=== PATIENT | female | born 1970 | race Caucasian/White ===

== ENCOUNTER 2019-09-19 14:51 | Inpatient (IN) | payer OTHER ==
[2019-09-19 18:16] VITALS: BMI 23.6
--- NOTE | 2019-09-19 21:22 | HP ---
COWS - Scale Resting Pulse: 0= [place] 80 or Below Sweatin=Flushed/Facial Moisture Restless Observation: 1= Difficult to Sit Still Pupil Size: 1= Pupils >than Normal (Pupils = 3 mm) Bone or Joint Aches: 0= None Runny Nose/ Eye Tearin= Nasal Congestion GI Upset > 30mins: 0= None Tremor Observation: 2= Slight Tremor Visible Yawning Observation: 0= None Anxiety or Irritability: 2=Irritable/Anxious Goose Flesh Skin: 0=Smooth Skin COWS Score: 9 CIWA Score Nausea/Vomitin-No Nausea/No Vomiting Muscle Tremors: 3 Anxiety: 3 Agitation: 1-Slight > Activity Paroxysmal Sweats: 3 (Increased facial moisture) Orientation: 0-Oriented Tacttile Disturbances: 1-Very Mild Itch/Numbness Auditory Disturbances: 0-None Visual Disturbances: 0-None Headache: 3-Moderate CIWA-Ar Total Score: 14 - Admission Criteria OAS Guidelines: Admission for Medically Managed Detox: Requires at least one of the followin. CIWA greater than 12 2. Seizures within the past 24 hours 3. Delirium tremens within the past 24 hours 4. Hallucinations within the past 24 hours 5. Acute intervention needed for co occurring medical disorder 6. Acute intervention needed for co occurring psychiatric disorder 7. Severe withdrawal that cannot be handled at a lower level of care (continued vomiting, continued diarrhea, abnormal vital signs) requiring intravenous medication and/or fluids 8. Patient presents the following: CIWA greater than 12 Admission Criteria Met: Admission criteria met Admitting History and Physical - Smoking History Smoking history: Never smoked Admission ROS [facility] Chief Complaint: I need to stop all these drugs. I want to be drug free. Allergies/Adverse Reactions: Allergies Allergy/AdvReac Type Severity Reaction Status Date / Time No Known Allergies Allergy Verified 09/19/19 18:00 History of Present Illness: 49 yo old states wants to detox from valium, oxycodone, heroin, and exhibits withdrawal symptoms. Denies seizures, blackouts, or overdoses. Oxycodone x 8 yrs ago. Uses 3-20 pills/day. Last used about 11 a.m. Denies suboxone use. Valium use began at age 19. Prescribed - takes less than what's prescribed. - Last use 2-3 days ago. Marijuana use disorder. Cocaine use disorder. Nicotine use began at age 13. Smokes 1 PPD. PMHx: Asthma; (R) hip pain (s/p ORIF); MHHx: Bipolar; Depression; Anxiety. MH meds being ordered by PCP. Denies thoughts of harming self or others. SHx: Domiciled. Unemployed. (SSI); Denies legal issues. Patient Name: Lulu Yates Date: 1970 Address: [address] [place] [address] Sex: Female Rx Written Rx Dispensed Drug Quantity Days Supply Prescriber Name 09/11/2019 09/15/2019 diazepam 10 mg tablet 120 30 Varun Winter MD 09/11/2019 09/12/2019 oxycodone hcl 30 mg tablet 120 30 Varun Winter MD 08/08/2019 08/15/2019 diazepam 10 mg tablet 120 30 Varun Winter MD 08/08/2019 08/09/2019 oxycodone hcl 30 mg tablet 120 30 Varun Winter MD 12/26/2018 08/08/2019 [facility] 12/30/2018 clonazepam 0.5 mg tablet 60 30 Miriam Bowling (LABORATORY TECHNOLOGIST) 10/28/2018 10/28/2018 diazepam 10 mg tablet 120 30 Varun Winter MD 10/01/2018 10/03/2018 diazepam 10 mg tablet 120 30 Varun Winter MD 09/29/2018 09/29/2018 oxycodone hcl 30 mg tablet 150 30 Varun Winter MD Patient Name: Lia Yates Date: 1970 [address]: [address] [place] [address] Sex: Female Rx Written Rx Dispensed Drug Quantity Days Supply Prescriber Name 07/12/2019 07/14/2019 oxycodone hcl 30 mg tablet 180 30 Varun Winter MD 07/12/2019 07/12/2019 diazepam 10 mg tablet 120 30 Varun Winter MD 06/15/2019 06/15/2019 oxycodone hcl 30 mg tablet 180 30 Varun Winter MD 06/08/2019 06/12/2019 [facility] 0[facility]5 mg tablet [facility] 06/12/2019 zolpidem tartrate 10 mg tablet 15 25 [facility] 05/11/2019 05/17/2019 oxycodone hcl 30 mg tablet 180 30 Varun Winter MD 05/01/2019 05/01/2019 diazepam 5 mg tablet 30 15 Anastacia Le 04/14/2019 04/19/2019 oxycodone hcl 30 mg tablet 180 30 Varun Winter MD 02/28/2019 04/19/2019 zolpidem tartrate 5 mg tablet 15 30 Miriam Bowling (LABORATORY TECHNOLOGIST ) 03/20/2019 03/22/2019 oxycodone hcl 30 mg tablet 180 30 Varun Winter MD 02/28/2019 03/20/2019 clonazepam 0.5 mg tablet 60 30 Miriam Bowling (LABORATORY TECHNOLOGIST) 02/28/2019 03/20/2019 zolpidem tartrate 5 mg tablet 15 30 Miriam Bowling (LABORATORY TECHNOLOGIST ) 02/21/2019 02/22/2019 oxycodone hcl 30 mg tablet 180 30 Varun Winter MD 02/20/2019 02/22/2019 diazepam 10 mg tablet 120 20 Varun Winter MD 01/27/2019 02/08/2019 zolpidem tartrate 5 mg tablet 15 30 Miriam Bowling (LABORATORY TECHNOLOGIST ) 01/27/2019 01/27/2019 clonazepam 0.5 mg tablet 60 30 Miriam Bowling (LABORATORY TECHNOLOGIST) 01/23/2019 01/25/2019 oxycodone hcl 30 mg tablet 150 30 Varun Winter MD 01/09/2019 01/10/2019 zolpidem tartrate 5 mg tablet 14 14 Miriam Bowling (LABORATORY TECHNOLOGIST ) 12/22/2018 12/28/2018 oxycodone hcl 30 mg tablet 150 30 Varun Winter MD Search Terms: Lia Yates, 1970 Search Date: 09/19/2019 09:07:33 PM States Searched: [place], [place], [place], [place], [place], [place], [place] The Drug Utilization Report below displays the controlled substance prescriptions, if any, that were dispensed in the indicated state(s). The information displayed on this report is compiled from requests submitted to other states' PMPs, and accurately reflects the information as returned by them. Blank morales indicate data not provided by other state. This report was requested by: Vielka Bowling | Reference #: [id number] There are no results for the search terms that you entered. Exam Limitations: No Limitations - Ebola screening Have you traveled outside of the country in the last 21 days: No Have you had contact with anyone from an Ebola affected area: No Have you been sick,other than usual withdrawal symptoms: No Do you have a fever: No - Review of Systems Constitutional: Chills, Changes in sleep (Difficulty staying asleep.), Weight Stable EENT: reports: Blurred Vision, Nose Congestion Respiratory: reports: No Symptoms reported Cardiac: reports: No Symptoms Reported GI: reports: Constipated (Last BM last night - hard to evacuate.), Vomiting ( earleir today), Indigestion (Heart burn - takes Zantac), Abdominal cramping : reports: No Symptoms Reported Musculoskeletal: reports: Joint Pain ((R) hip sharp/pins and needles pain. No pain now. Triggers w/ walking.) Integumentary: reports: No Symptoms Reported Neuro: reports: Headache (Frontal hammering headache. "5"), Tremors (slight) Endocrine: reports: Increased Thirst Hematology: reports: No Symptoms Reported Psychiatric: reports: Mood/Affect Appropiate, Orientated x3, Agitated, Anxious, Depressed (Denies thoughts of harming self or others.) Patient History - PPD History Previous Implant?: Yes Documented Results: Negative w/o proof Implanted On Prior R Admission?: No PPD to be Administered?: Yes - Reproductive History Patient is a Female of Child Bearing Age (11 -55 yrs old): Yes Last Menstrual Period: 09/18/19 Patient : No - Smoking Cessation Smoking history: Current every day smoker Have you smoked in the past 12 months: Yes Aproximately how many cigarettes per day: 20 Hx Chewing Tobacco Use: No Initiated information on smoking cessation: Yes 'Breaking Loose' booklet given: 09/19/19 - Substance & Tx. History Hx Alcohol Use: No Hx Substance Use: Yes Substance Use Type: Opiates, Tranquilizers (Xanax) Hx Substance Use Treatment: Yes (detox) - Substances abused Oxycontin Substance route: Oral Frequency: Daily Amount used: 30MG Age of first use: 43 Date of last use: 05/08/19 Other Other (specify): PERCOCET Substance route: Oral Frequency: Daily Amount used: 5-10MG Age of first use: 43 Date of last use: 05/08/19 Cocaine Substance route: Smoking Frequency: Daily Amount used: 5 BAGS Age of first use: 39 Date of last use: 09/19/19 Alcohol Substance route: Oral Frequency: 1-3 times last 30 days Amount used: ' I drink a lot'. Age of first use: 12 Date of last use: 09/14/19 Admission Physical Exam [facility] - Vital Signs Vital Signs: Vital Signs - 24 hr 09/19/19 18:00 Temperature 97.8 F Pulse Rate 71 Respiratory 16 Rate Blood Pressure 107/70 - Physical General Appearance: Yes: Nourished, Mild Distress, Sweating (Increased facial moisture), Anxious HEENTM: Yes: Hearing grossly Normal, Normocephalic, Normal Voice, SCOOBY (Pupils = 3 mm), Pharynx Normal, Nasal Congestion Respiratory: Yes: Lungs Clear (Pulse Ox = 99 %), Normal Breath Sounds, No Respiratory Distress Neck: Yes: No masses,lesions,Nodules, Supple Breast: Yes: Breast Exam Deferred Cardiology: Yes: Regular Rhythm, Regular Rate, S1, S2 Abdominal: Yes: Non Tender, Flat, Soft, Increased Bowel Sounds Genitourinary: Yes: Within Normal Limits Back: Yes: Normal Inspection Musculoskeletal: Yes: full range of Motion, Gait Steady Extremities: Yes: Normal Capillary Refill, Tremors (Mild tremors felt) Neurological: Yes: pharmacy teacher II-XII NML intact, Fully Oriented, Alert, Motor Strength 5/5, Normal Response Integumentary: Yes: Normal Color, Warm Lymphatic: Yes: Within Normal Limits - Diagnostic (1) Cocaine abuse, uncomplicated Current Visit: Yes Status: Chronic (2) Sedative, hypnotic or anxiolytic dependence with withdrawal, uncomplicated Current Visit: Yes Status: Acute (3) Opioid dependence with withdrawal Current Visit: Yes Status: Acute (4) Nicotine dependence, unspecified, uncomplicated Current Visit: Yes Status: Chronic Qualifiers: Nicotine product type: cigarettes Qualified Code(s): F17.210 - Nicotine dependence, cigarettes, uncomplicated (5) History of asthma Current Visit: Yes Status: Chronic (6) History of open reduction and internal fixation (ORIF) procedure Current Visit: Yes Status: Chronic Comment: (R) hip (7) Cannabis abuse, uncomplicated Current Visit: Yes Status: Acute (8) Heart burn Current Visit: Yes Status: Chronic Cleared for Admission [facility] - Detox or Rehab [facility] Level of Care: Medically Managed Detox Regimen/Protocol: Methadone/Librium Claeared for Rehab Admission: No Breathalyzer - Breathalyzer Breathalyzer: 0 Urine Drug Screen - Test Device Lot number: [id number] Expiration date: 05/14/21 - Control Is test valid?: Yes - Results Drug screen NEGATIVE: No Urine drug screen results: THC-Marijuana, MARCO-Cocaine, MOP-Opiates, OXY- Oxycodone, BUP-Suboxone Inpatient Rehab Admission - Rehab Decision to Admit Inpatient rehab admission?: No
[2019-09-19] MEDS ORDERED: MAGNESIUM CITRATE 300 ML BOTTLE PO PRN (22:30)
[2019-09-19] MEDS ORDERED: MENTHOL/PHENOL 1 EACH UD MM PRN (22:30)
[2019-09-19] MEDS ORDERED: MAG HYDROX/AL HYDROX/SIMETH 30 ML UNIT-DOSE CUP PO PRN (22:30)
[2019-09-19] MEDS ORDERED: guaiFENesin 200 MG/10 ML 10 ML UNIT-DOSE CUPS PO PRN (22:30)
[2019-09-19] MEDS ORDERED: BISMUTH SUBSALICYLATE 524 MG/30 ML UD PO PRN (22:30)
[2019-09-19] MEDS ORDERED: NICOTINE POLACRILEX 2 MG GUM BUC PRN (22:30)
[2019-09-19] MEDS ORDERED: MELATONIN 5 MG TABLETS PO PRN (22:30)
[2019-09-19] MEDS ORDERED: ACETAMINOPHEN 325 MG TABLET (FP) PO PRN ×2 (22:30)
[2019-09-19] MEDS ORDERED: MAGNESIUM HYDROX 2400MG/30ML ORAL SUSPENSION 30 ML CUP PO PRN (22:30)
[2019-09-19] MEDS ORDERED: IBUPROFEN 400 MG TABLET (FP) PO PRN (22:30)
[2019-09-19] MEDS ORDERED: ONDANSETRON *ODT* 4 MG TABLET SL PRN (22:30)
[2019-09-19] MEDS ORDERED: cloNIDine HCL 0.1 MG TABLET PO PRN (22:30)
[2019-09-19] MEDS ORDERED: METHADONE HCL 5 MG TABLET (FOR DETOX USE ONLY) PO ONE (23:05)
[2019-09-19] MEDS ORDERED: chlordiazePOXIDE HCL 25 MG CAPSULE PO ONE (23:15)
[2019-09-19] MEDS ORDERED: traZODone HCL 50 MG TABLET (FP) PO ONE (23:38)
[2019-09-20] MEDS: DOCUSATE SODIUM 100 MG CAPSULE (FP) PO SCH ×3 (08:07→22:20)
[2019-09-20] MEDS: chlordiazePOXIDE HCL 25 MG CAPSULE PO SCH ×3 (08:07→21:00)
[2019-09-20] MEDS ORDERED: METHADONE HCL 5 MG TABLET (FOR DETOX USE ONLY) PO ONE (10:00)
--- NOTE | 2019-09-20 10:39 | EKG ---
Test Reason : Blood Pressure : / mmHG Vent. Rate : 064 BPM Atrial Rate : 064 BPM P-R Int : 116 ms QRS Dur : 078 ms QT Int : 438 ms P-R-T Axes : 063 040 032 degrees QTc Int : 451 ms POOR DATA QUALITY, INTERPRETATION MAY BE ADVERSELY AFFECTED NORMAL SINUS RHYTHM NORMAL ECG NO PREVIOUS ECGS AVAILABLE Confirmed by ROSEMARIE BARNEY MD ([id number]) on 09/20/2019 10:39:27 AM Referred By: Confirmed By:ROSEMARIE BARNEY MD
[2019-09-20] MEDS: PANTOPRAZOLE 40 MG TABLET (FP) PO SCH (10:43)
[2019-09-20] MEDS: NICOTINE 21 MG/24 HOURS TOPICAL PATCH TD SCH (10:43)
[2019-09-20] MEDS: PRENATAL VITAMINS W/ FOLIC ACID TABLET (FP) PO SCH (10:44)
[2019-09-20 10:50] LABS: ALBUMIN 3.6 g/dl (3.4-5.0); BILIRUBIN,TOTAL 0.3 mg/dL (0.2-1); BLOOD UREA NITROGEN 14.3 mg/dL (7-18); CALCIUM 9.2 mg/dL (8.5-10.1); CREATININE 0.8 mg/dL (0.55-1.3); POTASSIUM 3.4 mmol/L (3.5-5.1); TOT PROT 6.2 g/dl (6.4-8.2)
[2019-09-20 10:55] LABS: HEMATOCRIT 42.5 % (32.4-45.2); HEMOGLOBIN 14.1 GM/dL (10.7-15.3); MCH 32.3 pg (25.7-33.7); MCHC 33.3 g/dl (32.0-36.0); MEAN PLT VOLUME 7.6 fl (7.5-11.1); PLATELET COUNT 307 K/MM3 (134-434); RBC 4.38 M/mm3 (3.60-5.2); RDW 13.9 % (11.6-15.6); WHITE BLOOD COUNT 5.3 K/mm3 (4.0-10.0)
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
--- NOTE | 2019-09-20 15:19 | PN ---
[facility] CIWA - CIWA Score Nausea/Vomitin-Mild Nausea/No Vomiting Muscle Tremors: 2 Anxiety: 2 Agitation: 2 Paroxysmal Sweats: No Perspiration Orientation: 0-Oriented Tacttile Disturbances: 1-Very Mild Itch/Numbness Auditory Disturbances: 0-None Visual Disturbances: 0-None Headache: 2-Mild CIWA-Ar Total Score: 10 BHS COWS - Scale Resting Pulse: 0= [place] 80 or Below Sweatin= No chills or Flushing Restless Observation: 1= Difficult to Sit Still Pupil Size: 1= Pupils >than Normal Bone or Joint Aches: 1= Mild Discomfort Runny Nose/ Eye Tearin= Nasal Congestion GI Upset > 30mins: 1= Stomach Cramp Tremor Observation of Outstretched Hands: 1= Tremor [place], Not Seen Yawning Observation: 1= 1-2x During Session Anxiety or Irritability: 2=Irritable/Anxious Goose Flesh Skin: 0=Smooth Skin COWS Score: 9 S Progress Note (SOAP) Subjective: alert,irritable,anxious,interrupted sleep,pain in the body and back Objective: 09/20/19 15:17 Vital Signs Temperature 99.3 F 09/20/19 13:35 Pulse Rate 63 09/20/19 13:35 Respiratory Rate 18 09/20/19 13:35 Blood Pressure 108/66 09/20/19 13:35 O2 Sat by Pulse Oximetry (%) Laboratory Last Values WBC 5.3 K/mm3 (4.0-10.0) 09/20/19 08:15 RBC 4.38 M/mm3 (3.60-5.2) 09/20/19 08:15 Hgb 14.1 GM/dL (10.7-15.3) 09/20/19 08:15 Hct 42.5 % (32.4-45.2) 09/20/19 08:15 MCV 97.0 fl (80-96) H 09/20/19 08:15 MCH 32.3 pg (25.7-33.7) 09/20/19 08:15 MCHC 33.3 g/dl (32.0-36.0) 09/20/19 08:15 RDW 13.9 % (11.6-15.6) 09/20/19 08:15 Plt Count 307 K/MM3 (134-434) 09/20/19 08:15 MPV 7.6 fl (7.5-11.1) 09/20/19 08:15 Sodium 138 mmol/L (136-145) 09/20/19 08:15 Potassium 3.4 mmol/L (3.5-5.1) L 09/20/19 08:15 Chloride 97 mmol/L (98-107) L 09/20/19 08:15 Carbon Dioxide 37 mmol/L (21-32) H 09/20/19 08:15 Anion Gap 4 MMOL/L (8-16) L 09/20/19 08:15 BUN 14.3 mg/dL (7-18) 09/20/19 08:15 Creatinine 0.8 mg/dL (0.55-1.3) 09/20/19 08:15 Est GFR (CKD-EPI)AfAm 99.63 09/20/19 08:15 Est GFR (CKD-EPI)NonAf 85.96 09/20/19 08:15 Random Glucose 84 mg/dL (74-106) 09/20/19 08:15 Calcium 9.2 mg/dL (8.5-10.1) 09/20/19 08:15 Total Bilirubin 0.3 mg/dL (0.2-1) 09/20/19 08:15 AST 14 U/L (15-37) L 09/20/19 08:15 ALT 19 U/L (13-61) 09/20/19 08:15 Alkaline Phosphatase 58 U/L (45-117) 09/20/19 08:15 Total Protein 6.2 g/dl (6.4-8.2) L 09/20/19 08:15 Albumin 3.6 g/dl (3.4-5.0) 09/20/19 08:15 POC Urine HCG, Qual Negative 09/19/19 20:50 HIV 1&2 Antibody Screen Negative 09/20/19 08:15 HIV P24 Antigen Negative 09/20/19 08:15 09/20/19 15:17 rpr pending Assessment: 09/20/19 15:18 withdrawal symptom Plan: continue detox methadone and librium
[2019-09-20] MEDS: PARoxetine HCL 20 MG TABLET PO SCH (16:02)
[2019-09-20] MEDS ORDERED: THIAMINE HCL 100 MG TABLET (FP) PO SCH (22:00)
[2019-09-20] MEDS ORDERED: QUEtiapine FUMARATE 100 MG TABLET (FP) PO SCH (22:00)
[2019-09-20] MEDS ORDERED: QUEtiapine FUMARATE 200 MG TABLET PO SCH (22:00)
[2019-09-20] MEDS ORDERED: chlordiazePOXIDE HCL 10 MG CAPSULE PO PRN (22:41)
[2019-09-21] MEDS ORDERED: chlordiazePOXIDE 5 MG CAPSULE PO SCH (05:00)
[2019-09-21] MEDS: DOCUSATE SODIUM 100 MG CAPSULE (FP) PO SCH (05:21)
[2019-09-21] MEDS ORDERED: METHADONE HCL 10 MG TABLET (FOR DETOX USE ONLY) PO ONE (10:00)
[2019-09-21] MEDS: PRENATAL VITAMINS W/ FOLIC ACID TABLET (FP) PO SCH (10:33)
[2019-09-21] MEDS: NICOTINE 21 MG/24 HOURS TOPICAL PATCH TD SCH (10:34)
[2019-09-21] MEDS: PARoxetine HCL 20 MG TABLET PO SCH (10:34)
[2019-09-21] MEDS: PANTOPRAZOLE 40 MG TABLET (FP) PO SCH (10:34)
--- NOTE | 2019-09-21 12:17 | PN ---
[facility] CIWA - CIWA Score Nausea/Vomitin-No Nausea/No Vomiting Muscle Tremors: 2 Anxiety: 2 Agitation: 2 Paroxysmal Sweats: 2 Orientation: 0-Oriented Tacttile Disturbances: 0-None Auditory Disturbances: 0-None Visual Disturbances: 0-None Headache: 0-None Present CIWA-Ar Total Score: 8 BHS COWS - Scale Resting Pulse: 0= [place] 80 or Below Sweatin= Chills/Flushing Restless Observation: 1= Difficult to Sit Still Pupil Size: 0= Normal to Room Light Bone or Joint Aches: 1= Mild Discomfort Runny Nose/ Eye Tearin= Nasal Congestion GI Upset > 30mins: 0= None Tremor Observation of Outstretched Hands: 1= Tremor [place], Not Seen Yawning Observation: 1= 1-2x During Session Anxiety or Irritability: 1=Feels Anxious/Irritable Goose Flesh Skin: 0=Smooth Skin COWS Score: 7 S Progress Note (SOAP) Subjective: sweats shakes chills body aches irritable Objective: 09/21/19 12:17 Vital Signs Temperature 97.9 F 09/21/19 10:32 Pulse Rate 59 L 09/21/19 10:32 Respiratory Rate 18 09/21/19 10:32 Blood Pressure 130/70 09/21/19 10:32 O2 Sat by Pulse Oximetry (%) Laboratory Tests 09/19/19 09/20/19 09/20/19 20:50 08:15 08:15 WBC 5.3 RBC 4.38 Hgb 14.1 Hct 42.5 MCV 97.0 H MCH 32.3 MCHC 33.3 RDW 13.9 Plt Count 307 MPV 7.6 Sodium Potassium Chloride Carbon Dioxide Anion Gap BUN Creatinine Est GFR (CKD-EPI)AfAm Est GFR (CKD-EPI)NonAf Random Glucose Calcium Total Bilirubin AST ALT Alkaline Phosphatase Total Protein Albumin POC Urine HCG, Qual Negative RPR Titer HIV 1&2 Antibody Screen Negative HIV P24 Antigen Negative 09/20/19 09/20/19 08:15 08:15 WBC RBC Hgb Hct MCV MCH MCHC RDW Plt Count MPV Sodium 138 Potassium 3.4 L Chloride 97 L Carbon Dioxide 37 H Anion Gap 4 L BUN 14.3 Creatinine 0.8 Est GFR (CKD-EPI)AfAm 99.63 Est GFR (CKD-EPI)NonAf 85.96 Random Glucose 84 Calcium 9.2 Total Bilirubin 0.3 AST 14 L ALT 19 Alkaline Phosphatase 58 Total Protein 6.2 L Albumin 3.6 POC Urine HCG, Qual RPR Titer Nonreactive HIV 1&2 Antibody Screen HIV P24 Antigen labs noted [id number] ambulating no acute distress low potassium 3.4 will replenish Assessment: 09/21/19 12:18 withdrawals Plan: continue detox increase fluids potassium 20meq x 2 days
[2019-09-21 13:19] VITALS: BP 110/76; PULSE 71; TEMP 96.4
--- NOTE | 2019-09-21 14:47 | PN ---
[facility] Progress Note Note: Pt states she has a family member who has been hospitalized and she needs to be at the bedside. Pt was made aware of her detox and risk of relapse, seizures, DT , OD and or loss, however, pt chose to sign out AMA.
--- NOTE | 2019-09-21 14:50 | DS ---
[facility] Detox Discharge Summary Admission Date: 09/19/19 - History Present History: Alcohol Dependence, Cocaine Dependence, Opioid Dependence - Physical Exam Results Vital Signs: Vital Signs Temperature 96.4 F L 09/21/19 13:19 Pulse Rate 71 09/21/19 13:19 Respiratory Rate 18 09/21/19 13:19 Blood Pressure 110/76 09/21/19 13:19 O2 Sat by Pulse Oximetry (%) Pertinent Admission Physical Exam Findings: pt arrived in withdrawals Vital Signs Temperature 96.4 F L 09/21/19 13:19 Pulse Rate 71 09/21/19 13:19 Respiratory Rate 18 09/21/19 13:19 Blood Pressure 110/76 09/21/19 13:19 O2 Sat by Pulse Oximetry (%) Laboratory Tests 09/19/19 09/20/19 09/20/19 20:50 08:15 08:15 WBC 5.3 RBC 4.38 Hgb 14.1 Hct 42.5 MCV 97.0 H MCH 32.3 MCHC 33.3 RDW 13.9 Plt Count 307 MPV 7.6 Sodium Potassium Chloride Carbon Dioxide Anion Gap BUN Creatinine Est GFR (CKD-EPI)AfAm Est GFR (CKD-EPI)NonAf Random Glucose Calcium Total Bilirubin AST ALT Alkaline Phosphatase Total Protein Albumin POC Urine HCG, Qual Negative RPR Titer HIV 1&2 Antibody Screen Negative HIV P24 Antigen Negative 09/20/19 09/20/19 08:15 08:15 WBC RBC Hgb Hct MCV MCH MCHC RDW Plt Count MPV Sodium 138 Potassium 3.4 L Chloride 97 L Carbon Dioxide 37 H Anion Gap 4 L BUN 14.3 Creatinine 0.8 Est GFR (CKD-EPI)AfAm 99.63 Est GFR (CKD-EPI)NonAf 85.96 Random Glucose 84 Calcium 9.2 Total Bilirubin 0.3 AST 14 L ALT 19 Alkaline Phosphatase 58 Total Protein 6.2 L Albumin 3.6 POC Urine HCG, Qual RPR Titer Nonreactive HIV 1&2 Antibody Screen HIV P24 Antigen labs noted pt chose to leave AMA - Treatment Hospital Course: Rehab Referral Accepted Patient has Accepted a Rehab Referral to: referral provided - Medication Discharge Medications: Ambulatory Orders Albuterol Sulfate Inhaler - [Ventolin Hfa Inhaler -] 1 - 2 inh PO QID 05/08/19 Diazepam [Valium] 5 mg PO BID 05/08/19 Divalproex [Depakote -] 500 mg PO BID 05/08/19 Gabapentin 300 mg PO DAILY 05/08/19 Paroxetine HCl [Paxil] 20 mg PO DAILY 05/08/19 Quetiapine Fumarate [Seroquel -] 50 mg PO DAILY 05/08/19 Quetiapine Fumarate [Seroquel -] 300 mg PO HS 05/08/19 - Diagnosis (1) Alcohol abuse Status: Acute (2) Cannabis abuse, uncomplicated Status: Acute (3) Cocaine dependence Status: Acute (4) Opioid dependence with withdrawal Status: Acute (5) Sedative, hypnotic or anxiolytic dependence with withdrawal, uncomplicated Status: Acute (6) Substance induced mood disorder Status: Acute (7) Substance-induced sleep disorder Status: Acute (8) Bipolar disorder Status: Chronic (9) Cocaine abuse, uncomplicated Status: Chronic (10) Heart burn Status: Chronic (11) History of asthma Status: Chronic (12) Nicotine dependence, unspecified, uncomplicated Status: Chronic Qualifiers: Nicotine product type: cigarettes Qualified Code(s): F17.210 - Nicotine dependence, cigarettes, uncomplicated (13) History of open reduction and internal fixation (ORIF) procedure Status: Resolved - AMA Did Patient Leave Against Medical Advice: Yes
[2019-09-22] MEDS ORDERED: chlordiazePOXIDE HCL 10 MG CAPSULE PO PRN
[2019-09-22] MEDS ORDERED: chlordiazePOXIDE HCL 10 MG CAPSULE PO SCH (05:00)
[2019-09-22] MEDS ORDERED: METHADONE HCL 10 MG TABLET PO ONE (10:00)
[2019-09-23] MEDS ORDERED: chlordiazePOXIDE HCL 10 MG CAPSULE PO ONE (05:00)
[2019-09-23] MEDS ORDERED: METHADONE HCL 5 MG TABLET (FOR DETOX USE ONLY) PO ONE (06:00)
== END 2019-09-21 13:19 | disposition left against medical advice (07) | DRG 770 ==
LOC: YASAS 14:51 → Y6N 22:55
PROVIDERS: ADMIT Allergy & Immunology; ATTEND Allergy & Immunology
PROC: HZ2ZZZZ Detoxification Services for Substance Abuse Treatment (ICD-10-PCS; principal; 2019-09-19)
DX: F11.23 Opioid dependence with withdrawal (principal); F13.230 Sedative, hypnotic or anxiolytic dependence with withdrawal, uncomplicated; F10.10 Alcohol abuse, uncomplicated; F14.20 Cocaine dependence, uncomplicated; F12.10 Cannabis abuse, uncomplicated; F17.210 Nicotine dependence, cigarettes, uncomplicated; F19.282 Other psychoactive substance dependence with psychoactive substance-induced sleep disorder; F19.24 Other psychoactive substance dependence with psychoactive substance-induced mood disorder; F31.9 Bipolar disorder, unspecified; R12 Heartburn; Z91.5 Personal history of self-harm; Z98.890 Other specified postprocedural states; Z87.09 Personal history of other diseases of the respiratory system
CPT/HCPCS: 36415; 80053; 81025; 85027; 86593; 87389; 93005; 93010